=== PATIENT | male | born 1945 | race Caucasian/White ===

== ENCOUNTER 2017-01-28 14:10 | Outpatient (RCR) | payer MEDICARE ==
[~2017-01-28 14:10] MED LIST: BENZ100C5 PO; FLOM5CAP PO; INSUDET SC; INSURSD SC; LATA5OPD; LISI10TA4 PO; METO1TAB32 PO; SIMV40TA2 PO
[2017-02-01] MEDS ORDERED: LISI20TA PO (14:24)
== END 2017-01-29 ==
LOC: M CR 14:10
PROVIDERS: ATTEND Internal Medicine Interventional Cardiology
DX: Z51.89 Encounter for other specified aftercare (principal); I25.10 Atherosclerotic heart disease of native coronary artery without angina pectoris; Z95.1 Presence of aortocoronary bypass graft

== ENCOUNTER 2017-02-03 08:10 | Day surgery (SDC) | payer MEDICARE ==
[~2017-02-03] VITALS: Ht 168.9 cm; Wt 88.5 kg
[~2017-02-03 08:10] MED LIST changes: +ACETAMINOPHEN 325 MG TAB PO PRN; +LISI20TA PO; +OFLOXACIN 0.3 % (OCUFLOX) OPTH SOL 5ML OS ONE; +PHENYLEPHRINE 2.5% OPHTH SOL 2ML OS ONE; +PROPARACAINE 0.5% OPHTH SOL 15ML OS ONE; +TROPICAMIDE 1% OPHTH SOLN 2ML OS ONE
[2017-02-03] MEDS ORDERED: LR 500 ML IV ONE (08:30)
[2017-02-03] MEDS ORDERED: TRIMETHOBENZAMIDE 300 MG CAP PO PRN (08:45)
[2017-02-03] MEDS ORDERED: BALANCED SALT IRRIGATION SOLUTION 500ML BAG (FOR OR EYE MACHINE) As Ordered ONE (09:34)
[2017-02-03] MEDS ORDERED: LIDOCAINE 0.75%/EPINEPHRINE 0.025% IN BSS 1ML SYR INTRACAMERAL (OR ONLY) As Ordered ONE (09:34)
[2017-02-03] MEDS ORDERED: DUOVISC (0.50ML VISCOAT/0.55ML PROVISC) OPHTH KIT As Ordered ONE (09:34)
[2017-02-03] MEDS ORDERED: POVIDONE-IODINE 5% OPHTH PREP SOL 30ML As Ordered ONE (09:34)
[2017-02-03] MEDS ORDERED: CEFUROXIME 1MG/0.1ML INTRACAMERAL INJ As Ordered ONE (09:34)
[2017-02-03] MEDS ORDERED: ACETYLCHOLINE OPHTH SOLN 1% 2ML (MIOCHOL-E) As Ordered ONE (09:34)
[2017-02-03] MEDS ORDERED: fentaNYL 100 MCG/2 ML INJECTION (J3010) As Ordered ONE (09:49)
[2017-02-03] MEDS ORDERED: MIDAZOLAM INJ 2 MG/2 ML VIAL (J2250) As Ordered ONE (09:49)
[2017-02-03 10:30] VITALS: BP 143/79
--- NOTE | 2017-02-04 14:28 | RO ---
DATE OF PROCEDURE: 02/03/2017 PREOPERATIVE DIAGNOSES: 1. Visually significant posterior capsular cataract left eye. 2. Regular astigmatism, left eye 3. Presbyopia, left eye POSTOPERATIVE DIAGNOSIS: Visually significant nuclear sclerotic cataract left eye. 2. Regular astigmatis, left eye 3. Presbyopia, left eye PROCEDURE: Extracapsular cataract removal with insertion of intraocular lens implant to the left eye with a multifocal Toric SND1T5, 18.0 diopters at 173 degrees, left eye. SURGEON: Parveen Minor DO W[employer]ORDER ASSEMBLER: ANESTHESIA: Local with monitored anesthesia care (MAC). COMPLICATIONS: None. POSTOPERATIVE CONDITION: Stable. INDICATION FOR SURGERY: Blurred vision left eye affecting patient's activities of daily living. DESCRIPTION OF PROCEDURE: The patient was seen in the preoperative area, the consents were reviewed, and the correct eye was marked. At that time, a Toric reference marker was used to place 0-, 90-, and 180-degree gomez on the patient' s eye. Topical dilating and antibiotic drops were placed on the eye. The patient was then transferred to the operating room. Patient was prepped and draped in a sterile fashion. Tegaderm tape was used to isolate the upper and lower eyelids, and a wire lid speculum was used to retract the eyelids. Using a Toric marker, the 173-degree axis was marked on the patient's eye, and then an ink carine was placed at this axis. Using a sideport blade, a paracentesis incision was made. Intraocular preservative-free lidocaine was then injected into the anterior chamber. Viscoelastic was then injected into the anterior chamber through the paracentesis. Using a 2.4 mm sharp-tipped keratome, the anterior chamber was entered via a temporal clear corneal incision. A continuous curvilinear capsulorrhexis was created with the aid of a 26g cystotome and Utrata forceps. Hydrodissection was performed with balanced salt solution (BSS) on a blunt cannula until the nucleus was freely mobile. The crystalline lens was phacoemulsified and aspirated. Additional cohesive viscoelastic was placed into the capsular bag to deepen it. An SND1T5 lens 18.0D was placed into the capsular bag and confirmed by visualizing the continuous curvilinear capsulorrhexis. The implant was rotated to align with the 173 degree axis. Additional irrigation and aspiration was used to remove cortical material and remaining viscoelastic. The clear corneal incision was hydrated with BSS on a blunt cannula. The lens was well positioned. The incisions were then tested for leaks and found to be negative. The eye was then palpated for appropriate pressure and adjusted accordingly with BSS. The eyelid speculum was carefully removed. A shield was placed over the eye. The patient tolerated the procedure well and was discharged to the recovery unit in a stable condition. DEJAH
== END 2017-02-03 11:20 | disposition home or self-care (01) ==
LOC: M SDC 08:10
PROVIDERS: ATTEND Ophthalmology
DX: H25.12 Age-related nuclear cataract, left eye (principal); H52.202 Unspecified astigmatism, left eye; H52.4 Presbyopia; I25.2 Old myocardial infarction; I10 Essential (primary) hypertension; I25.10 Atherosclerotic heart disease of native coronary artery without angina pectoris; E11.9 Type 2 diabetes mellitus without complications; E78.5 Hyperlipidemia, unspecified; Z86.73 Personal history of transient ischemic attack (TIA), and cerebral infarction without residual deficits; Z79.4 Long term (current) use of insulin; Z79.899 Other long term (current) drug therapy; Z95.1 Presence of aortocoronary bypass graft
CPT/HCPCS: 66984; J2250; J3010; V2788

== ENCOUNTER 2017-02-28 14:00 | Outpatient (RCR) | payer MEDICARE ==
[~2017-02-28 14:00] MED LIST changes: -ACETAMINOPHEN 325 MG TAB PO PRN; -OFLOXACIN 0.3 % (OCUFLOX) OPTH SOL 5ML OS ONE; -PHENYLEPHRINE 2.5% OPHTH SOL 2ML OS ONE; -PROPARACAINE 0.5% OPHTH SOL 15ML OS ONE; -TROPICAMIDE 1% OPHTH SOLN 2ML OS ONE
== END 2017-03-01 ==
LOC: M CR 14:00
PROVIDERS: ATTEND Internal Medicine Interventional Cardiology
DX: Z51.89 Encounter for other specified aftercare (principal); I25.10 Atherosclerotic heart disease of native coronary artery without angina pectoris; Z95.1 Presence of aortocoronary bypass graft

== ENCOUNTER 2017-03-30 14:52 | Outpatient (RCR) | payer MEDICARE | END 2017-03-31 | LOC: M CR 14:52 | PROVIDERS: ATTEND Internal Medicine Interventional Cardiology | DX: I25.10 Atherosclerotic heart disease of native coronary artery without angina pectoris (principal); Z95.1 Presence of aortocoronary bypass graft ==

== ENCOUNTER → 2019-07-13 | Outpatient (REF) | payer MEDICARE ==
[~2019-07-13] MED LIST changes: +BENZ-18 PO; -BENZ100C5 PO; +FLOM0.4C39 PO; -FLOM5CAP PO; +LATA0.0013; -LATA5OPD; -LISI20TA PO; +LISI20TA19 PO; -SIMV40TA2 PO; +SIMV40TA20 PO
[2019-07-13 17:46] LABS: CALCIUM LEVEL 9.1 MG/DL (8.8-10.2); CREATININE FOR GFR 1.67 MG/DL (0.70-1.30); GLOMERULAR FILTRATION RATE 43.1 (>42); POTASSIUM SERUM 4.1 MEQ/L (3.5-5.1)
== END ==
LOC: M LABSMT 15:12
PROVIDERS: ATTEND Nurse Practitioner Family
DX: N28.9 Disorder of kidney and ureter, unspecified (principal)
CPT/HCPCS: 80048; G0463

== ENCOUNTER → 2019-11-26 | Outpatient (CLI) | payer MEDICARE ==
[~2019-11-26] MED LIST changes: -LISI20TA19 PO; +LISI20TA35 PO
--- NOTE | 2020-01-14 08:58 | SLEEPCENT ---
DATE: 11/26/2019 ORDERED BY: Reese Morales DO Nocturnal polysomnography was performed for the titration of pressure therapy in this patient with obstructive sleep apnea syndrome, apnea hypopnea index 58.2. For testing, a ResMed AirFit F20 full face mask of medium size was used, 10 cm of water pressure was applied to the circuit, and the lights were extinguished. Seven hours and 23 minutes of data were reviewed. There were 209.5 minutes of sleep identified. Sleep latency was prolonged at 50 minutes. REM latency was normal at 103 minutes. Sleep architecture was fair with periods of wake resulting in a reduced sleep efficiency at 47.8%. The electrocardiogram showed a sinus rhythm with an average heart rate of 56 beats per minute. EEG showed normal waveforms for wake and sleep. Persistence of respiratory events early in the study prompted an increase in the CPAP pressure. The patient had a prolonged period of wakefulness. However, on returning to sleep, persistence of respiratory events prompted further increases in pressure. The best sleep was seen on a CPAP pressure of 15, however the patient was unable to achieve REM at that point in the study. There was some limb activity noted as well in the EMG leads. Limb movement arousal index was 6.0. IMPRESSION: Obstructive sleep apnea syndrome (G47.33). RECOMMENDATION: Nightly use of pressure therapy at 15 cm of water. [id number] edited: 02/27/2020 1110 emiliana POND
== END ==
LOC: M SLEEP 20:00
PROVIDERS: ATTEND Internal Medicine Pulmonary Disease
DX: G47.33 Obstructive sleep apnea (adult) (pediatric) (principal)

== ENCOUNTER → 2020-03-06 | Outpatient (REF) | payer MEDICARE ==
[2020-03-06 17:54] LABS: MAU/CREAT RATIO 128.4 MCG/MG (0.0-30.0)
== END ==
LOC: M LAB REF 16:54
PROVIDERS: ATTEND Nurse Practitioner Family
DX: E11.22 Type 2 diabetes mellitus with diabetic chronic kidney disease (principal)

== ENCOUNTER → 2021-07-30 | Outpatient (REF) | payer MEDICARE ==
[~2021-07-30] MED LIST changes: +LISI10TA22 PO; -LISI10TA4 PO
[2021-07-30 18:16] LABS: MAU/CREAT RATIO 75.1 MCG/MG (0.0-30.0)
== END ==
LOC: M LAB REF 16:59
PROVIDERS: ATTEND Nurse Practitioner Family
DX: E11.22 Type 2 diabetes mellitus with diabetic chronic kidney disease (principal)

== ENCOUNTER → 2023-03-09 | Outpatient (CLI) | payer MEDICARE, MEDICAID ==
[2023-03-09 15:38] LABS: HEMOGLOBIN A1c 7.4 % (4.0-6.0)
[2023-03-09 16:01] LABS: FREE T4 0.94 NG/DL (0.89-1.76)
[2023-03-09 16:02] LABS: THYROID STIMULATING HORMONE 2.429 uIU/ML (0.55-4.78)
== END ==
LOC: M LAB 14:14
PROVIDERS: ATTEND Psychiatry & Neurology Neurology
DX: E53.8 Deficiency of other specified B group vitamins (principal); E11.42 Type 2 diabetes mellitus with diabetic polyneuropathy; E07.9 Disorder of thyroid, unspecified

== ENCOUNTER → 2023-06-02 | Outpatient (REF) | payer MEDICARE, MEDICAID ==
[~2023-06-02] MED LIST changes: +INSU100V19 SC; -INSURSD SC
[2023-06-02 18:44] LABS: TOTAL PROTEIN,RANDOM URINE 34.8 MG/DL (0.0-14.0)
[2023-06-02 18:49] LABS: CREATININE,RANDOM URINE 155.1 MG/DL
== END ==
LOC: M LAB REF 17:33
PROVIDERS: ATTEND Internal Medicine Nephrology
DX: N18.4 Chronic kidney disease, stage 4 (severe) (principal)